=== PATIENT | male | born 1935 | race Caucasian/White ===

== ENCOUNTER 2019-02-21 06:54 | Inpatient (IN) | payer MEDICARE, OTHER ==
[2019-02-21 07:23] LABS: ADD MAN DIFF? NO
[2019-02-21 07:25] LABS: WHITE BLOOD COUNT 9.8 10^3/ul (4.8-10.8)
[2019-02-21 07:25] LABS: ABNORMAL IP MESSAGE 1; BASOPHILS % 0.2 % (0.0-2.0); EOSINOPHILS % 0.3 % (0.0-7.0); HEMATOCRIT 18.5 % (42.0-52.0); LYMPHOCYTES # 0.9 10^3/ul (0.8-2.9); LYMPHOCYTES % 9.5 % (15.0-51.0); MEAN CORPUSCULAR HEMOGLOBIN 32.3 pg (29.0-33.0); MEAN CORPUSCULAR VOLUME 97.9 fl (82.0-101.0); MEAN PLATELET VOLUME 10.7 fl (7.4-10.4); MONOCYTE # 0.5 10^3/ul (0.3-0.9); MONOCYTES % 5.3 % (0.0-11.0); NEUTROPHIL # 8.2 10^3/ul (1.6-7.5); PLATELET COUNT 221 10^3/UL (140-415); POSITIVE DIFF @See below; RED BLOOD COUNT 1.89 10^6/ul (4.70-6.10); RED CELL DISTRIBUTION WIDTH 14.1 % (11.5-14.5)
[2019-02-21 07:28] LABS: HEMOGLOBIN 6.1 g/dl (14.0-18.0)
[2019-02-21 07:41] LABS: ALANINE AMINOTRANSFERASE 20 IU/L (13-69); ALBUMIN 3.3 g/dl (3.3-4.9); ALBUMIN/GLOBULIN RATIO 1.43; ALKALINE PHOSPHATASE 62 IU/L (42-121); ANION GAP 19 (5-13); ASPARTATE AMINO TRANSFERASE 9 IU/L (15-46); BILIRUBIN,INDIRECT 0.2 mg/dl (0-1.1); BILIRUBIN,TOTAL 0.2 mg/dl (0.2-1.3); CARBON DIOXIDE 18 mmol/L (21-31); CHLORIDE 106 mmol/L (97-110); CREATINE KINASE 42 IU/L (23-200); CREATININE 5.03 mg/dl (0.61-1.24); GLUCOSE 126 mg/dl (70-220); POTASSIUM 4.6 mmol/L (3.5-5.1); SODIUM 143 mmol/L (135-144); TOTAL PROTEIN 5.6 g/dl (6.1-8.1)
[2019-02-21 07:43] LABS: PROTIME 14.3 Sec (11.9-14.9); PT RATIO 1.1
[2019-02-21 07:44] LABS: PARTIAL THROMBOPLASTIN TIME 28.3 Sec (23.0-35.0)
[2019-02-21] MEDS: SOD CHLORIDE 0.9% 1,000 ML IV ×2 (07:47→14:43)
[2019-02-21 07:48] LABS: BLOOD UREA NITROGEN 198 mg/dl (7-20)
[2019-02-21 07:55] LABS: CK INDEX 7.5; TROPONIN-I 0.093 ng/ml (0.000-0.120)
[2019-02-21 07:57] LABS: CK-MB 3.15 ng/ml (0.0-2.4)
[2019-02-21 07:58] LABS: ANISOCYTOSIS 1+ (0-0); LYMPHOCYTES % (M) 11 % (15-51); MONOCYTE #M 0.1 10^3/ul (0.3-0.9); MONOCYTES % (M) 2 % (0-11); PLATELET ESTIMATE NORMAL; RBC MORPHOLOGY COMMENT @See below; SEGMENTED NEUTROPHILS (M) % 87 % (39-77); SMUDGE%M 32 % (0-0); WBC MORPHOLOGY COMMENT @See below
[2019-02-21 08:05] LABS: ADD UMIC NO; UR ASCORBIC ACID NEGATIVE (NEGATIVE); UR BILIRUBIN (Dip) NEGATIVE (NEGATIVE); UR BLOOD (Dip) NEGATIVE (NEGATIVE); UR CLARITY CLEAR (CLEAR); UR COLOR STRAW (YELLOW); UR GLUCOSE (Dip) NEGATIVE (NEGATIVE); UR KETONES (Dip) NEGATIVE (NEGATIVE); UR LEUKOCYTE ESTERASE (Dip) NEGATIVE Leu/ul (NEGATIVE); UR NITRITE (Dip) NEGATIVE (NEGATIVE); UR SPECIFIC GRAVITY (Dip) 1.012 (1.003-1.030); UR TOTAL PROTEIN (Dip) NEGATIVE (NEGATIVE); UR UROBILINOGEN (Dip) NEGATIVE (NEGATIVE)
[2019-02-21] MEDS: ONDANSETRON 4 MG INJ IV ×2 (08:48→11:21)
[2019-02-21] MEDS: morphine 4 MG/ML VIAL IV (08:48)
[2019-02-21] MEDS ORDERED: ONDANSETRON 4 MG INJ IV (10:30)
[2019-02-21] MEDS: morphine 2 MG INJ IV (11:21)
[2019-02-21 11:45] LABS: OCCULT BLOOD STOOL POSITIVE (NEGATIVE)
[2019-02-21] MEDS ORDERED: NON-FORMULARY/PATIENT OWN MED (Temazepam* 30 MG) PO (15:00)
[2019-02-21] MEDS ORDERED: NACL 0.9% 3 ML SYG IV (15:00)
[2019-02-21] MEDS: ACETAMINOPHEN 325 MG TAB PO (15:58)
[2019-02-21 16:09] LABS: IRON 172 ug/dl (35-150)
[2019-02-21 16:19] LABS: % IRON SATURATION 68 % SAT (22-52); TOTAL IRON BINDING CAPACITY 252 ug/dl (241-421)
[2019-02-21 16:42] LABS: CARCINOEMBRYONIC ANTIGEN 2.1 ng/ml (0.0-5.0)
[2019-02-21] MEDS: PANTOPRAZOLE IV 80 MG in SOD CHLORIDE 0.9% 100 ML IV (20:35)
[2019-02-21] MEDS: PSYLLIUM 28% PACKET PO (21:00)
[2019-02-21] MEDS ORDERED: NON-FORMULARY/PATIENT OWN MED (Simvastatin* (Zocor*) 10 MG) PO (21:00)
[2019-02-21] MEDS: ATORVASTATIN 10 MG TAB PO (21:33)
[2019-02-21] MEDS: SUCRALFATE (100 MG/ML) 10ML CUP PO (23:43)
[2019-02-21] MEDS: FUROSEMIDE 40 MG TAB PO (23:44)
[2019-02-22] MEDS: ACETAMINOPHEN 325 MG TAB PO (01:16)
[2019-02-22] MEDS: PANTOPRAZOLE IV 80 MG in SOD CHLORIDE 0.9% 100 ML IV ×3 (01:18→21:16)
[2019-02-22 05:40] LABS: ADD MAN DIFF? NO
[2019-02-22 05:44] LABS: WHITE BLOOD COUNT 8.8 10^3/ul (4.8-10.8)
[2019-02-22 05:44] LABS: BASOPHILS % 0.1 % (0.0-2.0); HEMATOCRIT 22.7 % (42.0-52.0); HEMOGLOBIN 7.3 g/dl (14.0-18.0); LYMPHOCYTES # 0.7 10^3/ul (0.8-2.9); LYMPHOCYTES % 7.4 % (15.0-51.0); MEAN CORPUSCULAR HEMOGLOBIN 31.3 pg (29.0-33.0); MEAN CORPUSCULAR HGB CONC 32.2 g/dl (32.0-37.0); MEAN CORPUSCULAR VOLUME 97.4 fl (82.0-101.0); MEAN PLATELET VOLUME 11.1 fl (7.4-10.4); MONOCYTE # 0.5 10^3/ul (0.3-0.9); MONOCYTES % 5.8 % (0.0-11.0); NEUTROPHIL # 7.6 10^3/ul (1.6-7.5); NEUTROPHILS % 85.8 % (39.0-77.0); PLATELET COUNT 171 10^3/UL (140-415); RED BLOOD COUNT 2.33 10^6/ul (4.70-6.10)
[2019-02-22 06:22] LABS: ANION GAP 15 (5-13); CALCIUM 8.7 mg/dl (8.4-10.2); CARBON DIOXIDE 15 mmol/L (21-31); CHLORIDE 113 mmol/L (97-110); CHOL/HDL RATIO 2.7 RATIO; CHOLESTEROL 89 mg/dl (100-200); CREATININE 4.74 mg/dl (0.61-1.24); GLUCOSE 123 mg/dl (70-220); HDL CHOLESTEROL 32 mg/dl (31-75); LDL CHOLESTEROL,CALCULATED 39 mg/dl; MAGNESIUM 3.1 mg/dl (1.7-2.5); PHOSPHORUS 4.7 mg/dl (2.5-4.9); POTASSIUM 5.5 mmol/L (3.5-5.1); SODIUM 143 mmol/L (135-144); TRIGLYCERIDES 92 mg/dl (0-149)
[2019-02-22 06:29] LABS: BLOOD UREA NITROGEN 192 mg/dl (7-20)
[2019-02-22 07:28] LABS: HEMOGLOBIN A1C 5.6 % (0-5.9)
[2019-02-22] MEDS: THIAMINE 100 MG TAB PO (08:51)
[2019-02-22] MEDS: SUCRALFATE (100 MG/ML) 10ML CUP PO ×4 (08:51→21:15)
[2019-02-22] MEDS: ALLOPURINOL 300 MG TAB PO (08:51)
[2019-02-22] MEDS: PSYLLIUM 28% PACKET PO ×2 (08:52→21:15)
[2019-02-22] MEDS: FUROSEMIDE 40 MG TAB PO (08:52)
[2019-02-22] MEDS ORDERED: NON-FORMULARY/PATIENT OWN MED (Olmesartan Medoxomil (Benicar) 20 MG) PO (09:00)
[2019-02-22 11:25] LABS: HEMATOCRIT 22.8 % (42.0-52.0); HEMOGLOBIN 7.5 g/dl (14.0-18.0)
[2019-02-22] MEDS: ONDANSETRON 4 MG INJ IV (12:56)
[2019-02-22 14:35] LABS: IMMEDIATE SPIN CROSSMATCH 1 3
[2019-02-22] MEDS: SOD CHLORIDE 0.9% 250 ML IV* (15:04)
[2019-02-22] MEDS ORDERED: SOD CHLORIDE 0.9% 1,000 ML IV (15:30)
[2019-02-22] MEDS: BISACODYL (EC) 5 MG TAB PO (17:45)
[2019-02-22 18:11] LABS: AADO2 Arterial 27.9 mmHg (7.0-24.0); Allen Test ACCEPTAB; Arterial Base Excess -12.7 mmol/L (-3.0-3); Arterial Blood Gas Oxygen Sat 95.4 mmHG (95.0-100.0); Arterial COHb 0.5 % (0.0-3.0); Arterial Fraction of Oxyhgb 94.8 % (93.0-99.0); Arterial HCO3 13.5 mmol/L (22.0-26.0); Arterial MetHb 0.1 % (0.0-1.5); Arterial pCO2 31.6 mmhg (35-45); MODE ROOM AIR; Site Left Radial
[2019-02-22] MEDS: DESMOPRESSIN IVPB (18:49)
[2019-02-22] MEDS: SOD CHLORIDE 0.9% 1,000 ML IV (18:49)
[2019-02-22] MEDS: SOD CHLORIDE 0.9% IVPB (18:49)
[2019-02-22] MEDS: ATORVASTATIN 10 MG TAB PO (21:15)
[2019-02-23] MEDS ORDERED: VANCOMYCIN IV PER PHARMACY XX (04:30)
[2019-02-23] MEDS: VANCOMYCIN 1 GM 250 ML IVPB (05:00)
[2019-02-23] MEDS: ACETAMINOPHEN 325 MG TAB PO (05:00)
[2019-02-23 06:19] LABS: ADD MAN DIFF? NO
[2019-02-23 06:25] LABS: WHITE BLOOD COUNT 6.1 10^3/ul (4.8-10.8)
[2019-02-23 06:25] LABS: ABNORMAL IP MESSAGE 1; BASOPHILS % 0.2 % (0.0-2.0); EOSINOPHILS # 0.1 10^3/ul (0.0-0.5); EOSINOPHILS % 0.8 % (0.0-7.0); HEMATOCRIT 27.1 % (42.0-52.0); HEMOGLOBIN 8.6 g/dl (14.0-18.0); LYMPHOCYTES # 0.4 10^3/ul (0.8-2.9); LYMPHOCYTES % 7.2 % (15.0-51.0); MEAN CORPUSCULAR HEMOGLOBIN 30.7 pg (29.0-33.0); MEAN CORPUSCULAR HGB CONC 31.7 g/dl (32.0-37.0); MEAN CORPUSCULAR VOLUME 96.8 fl (82.0-101.0); MEAN PLATELET VOLUME 11.3 fl (7.4-10.4); MONOCYTE # 0.7 10^3/ul (0.3-0.9); NEUTROPHIL # 4.9 10^3/ul (1.6-7.5); NEUTROPHILS % 80.5 % (39.0-77.0); PLATELET COUNT 175 10^3/UL (140-415); POSITIVE DIFF @See below
[2019-02-23] MEDS: PANTOPRAZOLE IV 80 MG in SOD CHLORIDE 0.9% 100 ML IV ×2 (06:44→17:18)
[2019-02-23] MEDS: DILTIAZEM 25 MG INJ IV (07:00)
[2019-02-23] MEDS: DEXTROSE 5% IV ×3 (07:30→20:56)
[2019-02-23] MEDS: SODIUM BICARBONATE IV ×3 (07:30→20:56)
[2019-02-23 07:54] LABS: ANION GAP 14 (5-13); CALCIUM 8.7 mg/dl (8.4-10.2); CARBON DIOXIDE 14 mmol/L (21-31); CHLORIDE 116 mmol/L (97-110); CREATININE 5.16 mg/dl (0.61-1.24); GLUCOSE 121 mg/dl (70-220); MAGNESIUM 3.2 mg/dl (1.7-2.5); PHOSPHORUS 4.9 mg/dl (2.5-4.9); SODIUM 144 mmol/L (135-144)
[2019-02-23] MEDS: PEG/ELECTROLYTES 4L BTL PO (08:00)
[2019-02-23 08:13] LABS: BLOOD UREA NITROGEN 183 mg/dl (7-20)
[2019-02-23] MEDS: AMIODARONE 900 MG in DEXTROSE 5% 482 ML IV ×2 (08:28→16:19)
[2019-02-23] MEDS: AMIODARONE 150MG/D5W BOLUS 100 ML IV (08:35)
[2019-02-23] MEDS: SUCRALFATE (100 MG/ML) 10ML CUP PO ×4 (11:28→20:55)
[2019-02-23] MEDS: ALLOPURINOL 300 MG TAB PO (11:29)
[2019-02-23] MEDS: BISACODYL (EC) 5 MG TAB PO (11:29)
[2019-02-23] MEDS: PSYLLIUM 28% PACKET PO ×2 (11:29→20:55)
[2019-02-23] MEDS: THIAMINE 100 MG TAB PO (11:29)
[2019-02-23] MEDS: DILTIAZEM 30 MG TAB PO ×2 (11:29→17:24)
[2019-02-23] MEDS ORDERED: NA BICARBONATE 8.4% 50 ML SYG IV ×4 (16:30→23:00)
[2019-02-23] MEDS: ATORVASTATIN 10 MG TAB PO (20:56)
[2019-02-23] MEDS: ZOLPIDEM 5 MG TAB PO (21:16)
[2019-02-24] MEDS: DILTIAZEM 30 MG TAB PO ×2 (00:58→06:16)
[2019-02-24] MEDS: SODIUM BICARBONATE IV (01:00)
[2019-02-24] MEDS: DEXTROSE 5% IV (01:00)
[2019-02-24 06:05] LABS: ADD MAN DIFF? NO
[2019-02-24 06:11] LABS: ABNORMAL IP MESSAGE 1; EOSINOPHILS # 0.1 10^3/ul (0.0-0.5); EOSINOPHILS % 3.1 % (0.0-7.0); HEMATOCRIT 23.2 % (42.0-52.0); HEMOGLOBIN 7.7 g/dl (14.0-18.0); LYMPHOCYTES # 0.4 10^3/ul (0.8-2.9); MEAN CORPUSCULAR HEMOGLOBIN 31.2 pg (29.0-33.0); MEAN CORPUSCULAR HGB CONC 33.2 g/dl (32.0-37.0); MEAN CORPUSCULAR VOLUME 93.9 fl (82.0-101.0); MONOCYTE # 0.5 10^3/ul (0.3-0.9); MONOCYTES % 14.3 % (0.0-11.0); NEUTROPHIL # 2.5 10^3/ul (1.6-7.5); NEUTROPHILS % 72.3 % (39.0-77.0); PLATELET COUNT 149 10^3/UL (140-415); POSITIVE DIFF @See below; RED BLOOD COUNT 2.47 10^6/ul (4.70-6.10); RED CELL DISTRIBUTION WIDTH 15.8 % (11.5-14.5)
[2019-02-24 06:11] LABS: WHITE BLOOD COUNT 3.5 10^3/ul (4.8-10.8)
[2019-02-24] MEDS: PANTOPRAZOLE IV 80 MG in SOD CHLORIDE 0.9% 100 ML IV (06:14)
[2019-02-24] MEDS: PANTOPRAZOLE (EC) 40 MG TAB PO ×2 (06:18→17:42)
[2019-02-24 06:41] LABS: ANION GAP 12 (5-13); CALCIUM 8.5 mg/dl (8.4-10.2); CARBON DIOXIDE 13 mmol/L (21-31); CHLORIDE 118 mmol/L (97-110); CREATININE 5.63 mg/dl (0.61-1.24); GLUCOSE 124 mg/dl (70-220); MAGNESIUM 3.1 mg/dl (1.7-2.5); SODIUM 143 mmol/L (135-144)
[2019-02-24 07:03] LABS: BLOOD UREA NITROGEN 182 mg/dl (7-20)
[2019-02-24] MEDS: SUCRALFATE (100 MG/ML) 10ML CUP PO ×3 (08:49→17:42)
[2019-02-24] MEDS: PSYLLIUM 28% PACKET PO (08:50)
[2019-02-24] MEDS: ALLOPURINOL 300 MG TAB PO (08:50)
[2019-02-24] MEDS: THIAMINE 100 MG TAB PO (08:50)
[2019-02-24] MEDS: AMIODARONE 200 MG TAB PO (12:10)
[2019-02-24] MEDS: PEG/ELECTROLYTES 4L BTL PO (14:28)
[2019-02-24] MEDS: SODIUM BICARBONATE IN D5W 1,000 ML IV (15:16)
[2019-02-25] MEDS: SUCRALFATE (100 MG/ML) 10ML CUP PO ×6 (00:21→21:09)
[2019-02-25] MEDS: ATORVASTATIN 10 MG TAB PO ×2 (00:22→21:09)
[2019-02-25] MEDS: AMIODARONE 200 MG TAB PO ×4 (00:22→21:10)
[2019-02-25] MEDS: PSYLLIUM 28% PACKET PO ×4 (00:23→21:00)
[2019-02-25] MEDS: PANTOPRAZOLE (EC) 40 MG TAB PO ×2 (06:27→18:23)
[2019-02-25] MEDS: SODIUM BICARBONATE IN D5W 1,000 ML IV ×2 (06:27→18:19)
[2019-02-25] MEDS: ALLOPURINOL 300 MG TAB PO ×2 (08:49→09:00)
[2019-02-25] MEDS: THIAMINE 100 MG TAB PO ×3 (08:50→09:00)
[2019-02-25] MEDS: BISACODYL (EC) 5 MG TAB PO ×2 (10:00→18:18)
[2019-02-25] MEDS: MAGNESIUM CITRATE 300 ML BTL PO (12:11)
[2019-02-25] MEDS: POLYETHYLENE GLYCOL 3350 119 GM POWDER PO ×2 (12:12→18:00)
[2019-02-25 12:44] LABS: ANION GAP 8 (5-13); CALCIUM 8.4 mg/dl (8.4-10.2); CARBON DIOXIDE 21 mmol/L (21-31); CHLORIDE 114 mmol/L (97-110); CREATININE 5.35 mg/dl (0.61-1.24); GLUCOSE 145 mg/dl (70-220); POTASSIUM 4.4 mmol/L (3.5-5.1); SODIUM 143 mmol/L (135-144)
[2019-02-25 12:55] LABS: BLOOD UREA NITROGEN 165 mg/dl (7-20)
[2019-02-25 16:18] LABS: ADD MAN DIFF? NO
[2019-02-25 16:21] LABS: WHITE BLOOD COUNT 3.1 10^3/ul (4.8-10.8)
[2019-02-25 16:21] LABS: ABNORMAL IP MESSAGE 1; EOSINOPHILS # 0.2 10^3/ul (0.0-0.5); EOSINOPHILS % 5.4 % (0.0-7.0); HEMATOCRIT 21.9 % (42.0-52.0); HEMOGLOBIN 7.4 g/dl (14.0-18.0); LYMPHOCYTES # 0.3 10^3/ul (0.8-2.9); LYMPHOCYTES % 8.3 % (15.0-51.0); MEAN CORPUSCULAR HEMOGLOBIN 31.6 pg (29.0-33.0); MEAN CORPUSCULAR HGB CONC 33.8 g/dl (32.0-37.0); MEAN CORPUSCULAR VOLUME 93.6 fl (82.0-101.0); MEAN PLATELET VOLUME 11.8 fl (7.4-10.4); MONOCYTE # 0.4 10^3/ul (0.3-0.9); MONOCYTES % 11.5 % (0.0-11.0); NEUTROPHIL # 2.3 10^3/ul (1.6-7.5); NEUTROPHILS % 73.5 % (39.0-77.0); PLATELET COUNT 141 10^3/UL (140-415); POSITIVE DIFF @See below; RED BLOOD COUNT 2.34 10^6/ul (4.70-6.10); RED CELL DISTRIBUTION WIDTH 15.7 % (11.5-14.5)
[2019-02-25] MEDS: EPOETIN ALFA-EPBX (NON-ESRD 10,000 UNIT/ML VIAL SC (18:15)
[2019-02-26 05:44] LABS: ADD MAN DIFF? NO
[2019-02-26 06:04] LABS: ABNORMAL IP MESSAGE 1; BASOPHILS % 0.2 % (0.0-2.0); EOSINOPHILS # 0.2 10^3/ul (0.0-0.5); EOSINOPHILS % 3.6 % (0.0-7.0); HEMATOCRIT 22.6 % (42.0-52.0); HEMOGLOBIN 7.7 g/dl (14.0-18.0); LYMPHOCYTES # 0.2 10^3/ul (0.8-2.9); LYMPHOCYTES % 5.7 % (15.0-51.0); MEAN CORPUSCULAR HEMOGLOBIN 31.4 pg (29.0-33.0); MEAN CORPUSCULAR HGB CONC 34.1 g/dl (32.0-37.0); MEAN CORPUSCULAR VOLUME 92.2 fl (82.0-101.0); MEAN PLATELET VOLUME 12.3 fl (7.4-10.4); MONOCYTE # 0.3 10^3/ul (0.3-0.9); MONOCYTES % 8.1 % (0.0-11.0); NEUTROPHIL # 3.4 10^3/ul (1.6-7.5); NEUTROPHILS % 81.2 % (39.0-77.0); PLATELET COUNT 129 10^3/UL (140-415); POSITIVE DIFF @See below; RED BLOOD COUNT 2.45 10^6/ul (4.70-6.10); RED CELL DISTRIBUTION WIDTH 15.5 % (11.5-14.5)
[2019-02-26 06:04] LABS: WHITE BLOOD COUNT 4.2 10^3/ul (4.8-10.8)
[2019-02-26] MEDS: PANTOPRAZOLE (EC) 40 MG TAB PO ×2 (06:12→18:00)
[2019-02-26 07:38] LABS: ALBUMIN 2.9 g/dl (3.3-4.9); BILIRUBIN,INDIRECT 0.3 mg/dl (0-1.1); BILIRUBIN,TOTAL 0.3 mg/dl (0.2-1.3)
[2019-02-26 08:06] LABS: ALANINE AMINOTRANSFERASE 22 IU/L (13-69); ALBUMIN/GLOBULIN RATIO 1.16; ALKALINE PHOSPHATASE 46 IU/L (42-121); ANION GAP 8 (5-13); ASPARTATE AMINO TRANSFERASE 25 IU/L (15-46); CALCIUM 8.4 mg/dl (8.4-10.2); CARBON DIOXIDE 25 mmol/L (21-31); CHLORIDE 112 mmol/L (97-110); CREATININE 4.48 mg/dl (0.61-1.24); GLUCOSE 145 mg/dl (70-220); MAGNESIUM 3.3 mg/dl (1.7-2.5); PHOSPHORUS 3.7 mg/dl (2.5-4.9); POTASSIUM 4.4 mmol/L (3.5-5.1); SODIUM 145 mmol/L (135-144); TOTAL PROTEIN 5.4 g/dl (6.1-8.1)
[2019-02-26 08:13] LABS: BLOOD UREA NITROGEN 160 mg/dl (7-20)
[2019-02-26] MEDS: SODIUM BICARBONATE IN D5W 1,000 ML IV (09:37)
[2019-02-26] MEDS: SUCRALFATE (100 MG/ML) 10ML CUP PO ×4 (11:31→20:52)
[2019-02-26] MEDS: THIAMINE 100 MG TAB PO (11:31)
[2019-02-26] MEDS: ALLOPURINOL 300 MG TAB PO (11:31)
[2019-02-26] MEDS: PSYLLIUM 28% PACKET PO ×2 (11:32→20:53)
[2019-02-26] MEDS: AMIODARONE 200 MG TAB PO ×2 (11:34→20:48)
[2019-02-26] MEDS: SOD CHLORIDE 0.45% 1,000 ML IV (17:02)
[2019-02-26] MEDS: POLYETHYLENE GLYCOL 3350 119 GM POWDER PO ×2 (17:32→18:00)
[2019-02-26] MEDS: ATORVASTATIN 10 MG TAB PO (20:48)
[2019-02-26] MEDS: DEXTROSE 5% 1,000 ML IV (23:53)
[2019-02-27] MEDS: PANTOPRAZOLE (EC) 40 MG TAB PO ×2 (05:22→17:19)
[2019-02-27] MEDS: AMIODARONE 200 MG TAB PO ×2 (09:27→21:44)
[2019-02-27] MEDS: SUCRALFATE (100 MG/ML) 10ML CUP PO ×4 (09:28→21:43)
[2019-02-27] MEDS: ALLOPURINOL 300 MG TAB PO (09:28)
[2019-02-27] MEDS: PSYLLIUM 28% PACKET PO ×2 (09:28→21:46)
[2019-02-27] MEDS: THIAMINE 100 MG TAB PO (09:28)
[2019-02-27 11:02] LABS: ADD MAN DIFF? NO
[2019-02-27 11:10] LABS: ABNORMAL IP MESSAGE 1; BASOPHILS % 0.1 % (0.0-2.0); EOSINOPHILS # 0.1 10^3/ul (0.0-0.5); EOSINOPHILS % 1.6 % (0.0-7.0); HEMATOCRIT 27.6 % (42.0-52.0); HEMOGLOBIN 8.8 g/dl (14.0-18.0); LYMPHOCYTES # 0.3 10^3/ul (0.8-2.9); LYMPHOCYTES % 4.8 % (15.0-51.0); MEAN CORPUSCULAR HEMOGLOBIN 30.2 pg (29.0-33.0); MEAN CORPUSCULAR HGB CONC 31.9 g/dl (32.0-37.0); MEAN CORPUSCULAR VOLUME 94.8 fl (82.0-101.0); MEAN PLATELET VOLUME 11.8 fl (7.4-10.4); MONOCYTE # 0.6 10^3/ul (0.3-0.9); MONOCYTES % 8.9 % (0.0-11.0); NEUTROPHIL # 5.8 10^3/ul (1.6-7.5); PLATELET COUNT 162 10^3/UL (140-415); POSITIVE DIFF @See below; RED BLOOD COUNT 2.91 10^6/ul (4.70-6.10); RED CELL DISTRIBUTION WIDTH 15.8 % (11.5-14.5)
[2019-02-27 11:10] LABS: WHITE BLOOD COUNT 6.9 10^3/ul (4.8-10.8)
[2019-02-27 11:28] LABS: ANION GAP 7 (5-13)
[2019-02-27 11:29] LABS: CARBON DIOXIDE 32 mmol/L (21-31); CHLORIDE 107 mmol/L (97-110); GLUCOSE 128 mg/dl (70-220); POTASSIUM 4.4 mmol/L (3.5-5.1); SODIUM 146 mmol/L (135-144)
[2019-02-27 11:30] LABS: CALCIUM 8.4 mg/dl (8.4-10.2); CREATININE 4.08 mg/dl (0.61-1.24)
[2019-02-27 11:43] LABS: BLOOD UREA NITROGEN 130 mg/dl (7-20)
[2019-02-27] MEDS: BISACODYL (EC) 5 MG TAB PO (16:26)
[2019-02-27] MEDS: POLYETHYLENE GLYCOL 3350 119 GM POWDER PO (16:27)
[2019-02-27] MEDS: ATORVASTATIN 10 MG TAB PO (21:43)
[2019-02-27] MEDS: DEXTROSE 5%-0.45% NACL 1,000 ML IV (21:46)
[2019-02-28] MEDS: PANTOPRAZOLE (EC) 40 MG TAB PO ×2 (06:00→19:08)
[2019-02-28 06:19] LABS: ADD MAN DIFF? NO
[2019-02-28 06:26] LABS: ABNORMAL IP MESSAGE 1; EOSINOPHILS # 0.1 10^3/ul (0.0-0.5); EOSINOPHILS % 1.1 % (0.0-7.0); HEMATOCRIT 24.6 % (42.0-52.0); LYMPHOCYTES # 0.4 10^3/ul (0.8-2.9); LYMPHOCYTES % 5.2 % (15.0-51.0); MEAN CORPUSCULAR HEMOGLOBIN 30.8 pg (29.0-33.0); MEAN CORPUSCULAR HGB CONC 32.5 g/dl (32.0-37.0); MEAN CORPUSCULAR VOLUME 94.6 fl (82.0-101.0); MEAN PLATELET VOLUME 12.5 fl (7.4-10.4); MONOCYTE # 0.5 10^3/ul (0.3-0.9); MONOCYTES % 6.8 % (0.0-11.0); NEUTROPHIL # 6.1 10^3/ul (1.6-7.5); NEUTROPHILS % 86.2 % (39.0-77.0); PLATELET COUNT 153 10^3/UL (140-415); POSITIVE DIFF @See below; RED CELL DISTRIBUTION WIDTH 15.2 % (11.5-14.5)
[2019-02-28 06:26] LABS: WHITE BLOOD COUNT 7.1 10^3/ul (4.8-10.8)
[2019-02-28 06:44] LABS: ANION GAP 6 (5-13); BLOOD UREA NITROGEN 119 mg/dl (7-20); CALCIUM 8.2 mg/dl (8.4-10.2); CARBON DIOXIDE 32 mmol/L (21-31); CHLORIDE 106 mmol/L (97-110); CREATININE 3.74 mg/dl (0.61-1.24); GLUCOSE 151 mg/dl (70-220); POTASSIUM 4.1 mmol/L (3.5-5.1); SODIUM 144 mmol/L (135-144)
[2019-02-28] MEDS: SUCRALFATE (100 MG/ML) 10ML CUP PO ×4 (08:20→20:53)
[2019-02-28] MEDS: AMIODARONE 200 MG TAB PO ×2 (08:21→20:53)
[2019-02-28] MEDS: THIAMINE 100 MG TAB PO (08:22)
[2019-02-28] MEDS: PSYLLIUM 28% PACKET PO ×2 (08:22→20:54)
[2019-02-28] MEDS: ALLOPURINOL 300 MG TAB PO (08:22)
[2019-02-28] MEDS: POLYETHYLENE GLYCOL 3350 119 GM POWDER PO (08:23)
[2019-02-28] MEDS: DEXTROSE 5%-0.45% NACL 1,000 ML IV ×3 (08:50→22:10)
[2019-02-28] MEDS ORDERED: PHENYLephrine (100 MCG/ML) 10ML SYG (17:00)
[2019-02-28] MEDS ORDERED: PROPOFOL 200 MG INJ (17:00)
[2019-02-28] MEDS: EPOETIN ALFA-EPBX (NON-ESRD 10,000 UNIT/ML VIAL SC (19:09)
[2019-02-28] MEDS: ATORVASTATIN 10 MG TAB PO (20:53)
[2019-03-01] MEDS: ZOLPIDEM 5 MG TAB PO (01:09)
[2019-03-01] MEDS: PANTOPRAZOLE (EC) 40 MG TAB PO ×2 (05:22→17:13)
[2019-03-01 05:54] LABS: ADD MAN DIFF? NO
[2019-03-01 06:05] LABS: ABNORMAL IP MESSAGE 1; BASOPHILS % 0.1 % (0.0-2.0); EOSINOPHILS # 0.2 10^3/ul (0.0-0.5); EOSINOPHILS % 2.2 % (0.0-7.0); HEMATOCRIT 23.2 % (42.0-52.0); HEMOGLOBIN 7.5 g/dl (14.0-18.0); LYMPHOCYTES # 0.4 10^3/ul (0.8-2.9); LYMPHOCYTES % 4.6 % (15.0-51.0); MEAN CORPUSCULAR HEMOGLOBIN 31.1 pg (29.0-33.0); MEAN CORPUSCULAR HGB CONC 32.3 g/dl (32.0-37.0); MEAN CORPUSCULAR VOLUME 96.3 fl (82.0-101.0); MEAN PLATELET VOLUME 12.3 fl (7.4-10.4); MONOCYTE # 0.5 10^3/ul (0.3-0.9); MONOCYTES % 6.8 % (0.0-11.0); NEUTROPHIL # 6.5 10^3/ul (1.6-7.5); NEUTROPHILS % 85.6 % (39.0-77.0); NUCLEATED RED BLOOD CELLS% 0.5 /100WBC (0.0-0.0); PLATELET COUNT 167 10^3/UL (140-415); POSITIVE DIFF @See below; RED BLOOD COUNT 2.41 10^6/ul (4.70-6.10); RED CELL DISTRIBUTION WIDTH 14.6 % (11.5-14.5)
[2019-03-01 06:05] LABS: WHITE BLOOD COUNT 7.6 10^3/ul (4.8-10.8)
[2019-03-01 06:17] LABS: ANION GAP 6 (5-13); BLOOD UREA NITROGEN 102 mg/dl (7-20); CALCIUM 8.1 mg/dl (8.4-10.2); CARBON DIOXIDE 29 mmol/L (21-31); CHLORIDE 105 mmol/L (97-110); CREATININE 3.36 mg/dl (0.61-1.24); GLUCOSE 113 mg/dl (70-220); POTASSIUM 3.7 mmol/L (3.5-5.1); SODIUM 140 mmol/L (135-144)
[2019-03-01 06:19] LABS: MAGNESIUM 3.2 mg/dl (1.7-2.5)
[2019-03-01] MEDS: ALLOPURINOL 300 MG TAB PO (08:25)
[2019-03-01] MEDS: PSYLLIUM 28% PACKET PO ×2 (08:25→20:18)
[2019-03-01] MEDS: SUCRALFATE (100 MG/ML) 10ML CUP PO ×4 (08:25→20:18)
[2019-03-01] MEDS: THIAMINE 100 MG TAB PO (08:26)
[2019-03-01] MEDS: AMIODARONE 200 MG TAB PO ×2 (08:27→20:19)
[2019-03-01] MEDS: DEXTROSE 5%-0.45% NACL 1,000 ML IV (11:54)
[2019-03-01] MEDS: ATORVASTATIN 10 MG TAB PO (20:18)
[2019-03-02] MEDS: PANTOPRAZOLE (EC) 40 MG TAB PO ×2 (05:20→17:14)
[2019-03-02 05:46] LABS: ADD MAN DIFF? NO
[2019-03-02 05:53] LABS: WHITE BLOOD COUNT 8.5 10^3/ul (4.8-10.8)
[2019-03-02 05:53] LABS: ABNORMAL IP MESSAGE 1; BASOPHILS % 0.1 % (0.0-2.0); EOSINOPHILS # 0.3 10^3/ul (0.0-0.5); HEMATOCRIT 25.3 % (42.0-52.0); HEMOGLOBIN 8.2 g/dl (14.0-18.0); LYMPHOCYTES # 0.5 10^3/ul (0.8-2.9); LYMPHOCYTES % 6.1 % (15.0-51.0); MEAN CORPUSCULAR HEMOGLOBIN 30.8 pg (29.0-33.0); MEAN CORPUSCULAR HGB CONC 32.4 g/dl (32.0-37.0); MEAN CORPUSCULAR VOLUME 95.1 fl (82.0-101.0); MEAN PLATELET VOLUME 11.7 fl (7.4-10.4); MONOCYTE # 0.6 10^3/ul (0.3-0.9); NEUTROPHIL # 7.1 10^3/ul (1.6-7.5); NEUTROPHILS % 82.7 % (39.0-77.0); NUCLEATED RED BLOOD CELLS% 0.2 /100WBC (0.0-0.0); PLATELET COUNT 208 10^3/UL (140-415); POSITIVE DIFF @See below; RED BLOOD COUNT 2.66 10^6/ul (4.70-6.10); RED CELL DISTRIBUTION WIDTH 14.6 % (11.5-14.5)
[2019-03-02 06:41] LABS: ANION GAP 7 (5-13); BLOOD UREA NITROGEN 90 mg/dl (7-20); CALCIUM 7.9 mg/dl (8.4-10.2); CARBON DIOXIDE 26 mmol/L (21-31); CHLORIDE 105 mmol/L (97-110); CREATININE 3.51 mg/dl (0.61-1.24); GLUCOSE 121 mg/dl (70-220); POTASSIUM 3.9 mmol/L (3.5-5.1); SODIUM 138 mmol/L (135-144)
[2019-03-02] MEDS: DEXTROSE 5%-0.45% NACL 1,000 ML IV (07:35)
[2019-03-02] MEDS: PSYLLIUM 28% PACKET PO ×2 (09:00→20:33)
[2019-03-02] MEDS: SUCRALFATE (100 MG/ML) 10ML CUP PO ×4 (09:13→20:33)
[2019-03-02] MEDS: THIAMINE 100 MG TAB PO (09:13)
[2019-03-02] MEDS: ALLOPURINOL 300 MG TAB PO (09:13)
[2019-03-02] MEDS: FUROSEMIDE 40 MG INJ IV ×2 (09:15→22:06)
[2019-03-02] MEDS: AMIODARONE 200 MG TAB PO ×2 (09:18→20:34)
[2019-03-02] MEDS: EPOETIN ALFA-EPBX (NON-ESRD 10,000 UNIT/ML VIAL SC (17:14)
[2019-03-02] MEDS: ATORVASTATIN 10 MG TAB PO (20:33)
[2019-03-03] MEDS: PANTOPRAZOLE (EC) 40 MG TAB PO ×2 (06:30→17:31)
[2019-03-03] MEDS: ACETAMINOPHEN 325 MG TAB PO ×2 (06:33→23:38)
[2019-03-03 06:43] LABS: ANION GAP 8 (5-13); BLOOD UREA NITROGEN 82 mg/dl (7-20); CALCIUM 8.2 mg/dl (8.4-10.2); CARBON DIOXIDE 28 mmol/L (21-31); CHLORIDE 104 mmol/L (97-110); CREATININE 3.57 mg/dl (0.61-1.24); GLUCOSE 105 mg/dl (70-220); POTASSIUM 3.8 mmol/L (3.5-5.1); SODIUM 140 mmol/L (135-144)
[2019-03-03] MEDS: SUCRALFATE (100 MG/ML) 10ML CUP PO ×4 (08:41→21:51)
[2019-03-03] MEDS: AMIODARONE 200 MG TAB PO ×2 (08:41→21:52)
[2019-03-03] MEDS: THIAMINE 100 MG TAB PO (08:41)
[2019-03-03] MEDS: ALLOPURINOL 300 MG TAB PO (08:42)
[2019-03-03] MEDS: PSYLLIUM 28% PACKET PO ×2 (11:20→21:00)
[2019-03-03] MEDS: FUROSEMIDE 40 MG INJ IV (11:31)
[2019-03-03] MEDS: ATORVASTATIN 10 MG TAB PO (21:51)
[2019-03-04] MEDS: PANTOPRAZOLE (EC) 40 MG TAB PO ×2 (05:54→17:33)
[2019-03-04 06:32] LABS: ADD MAN DIFF? NO
[2019-03-04 06:45] LABS: ABNORMAL IP MESSAGE 1; BASOPHILS % 0.3 % (0.0-2.0); EOSINOPHILS # 0.2 10^3/ul (0.0-0.5); EOSINOPHILS % 2.7 % (0.0-7.0); HEMATOCRIT 22.7 % (42.0-52.0); HEMOGLOBIN 7.3 g/dl (14.0-18.0); LYMPHOCYTES # 0.5 10^3/ul (0.8-2.9); LYMPHOCYTES % 6.7 % (15.0-51.0); MEAN CORPUSCULAR HEMOGLOBIN 29.9 pg (29.0-33.0); MEAN CORPUSCULAR HGB CONC 32.2 g/dl (32.0-37.0); MEAN PLATELET VOLUME 11.8 fl (7.4-10.4); MONOCYTE # 0.5 10^3/ul (0.3-0.9); MONOCYTES % 6.4 % (0.0-11.0); NEUTROPHIL # 6.5 10^3/ul (1.6-7.5); NEUTROPHILS % 82.9 % (39.0-77.0); NUCLEATED RED BLOOD CELLS% 0.3 /100WBC (0.0-0.0); PLATELET COUNT 203 10^3/UL (140-415); POSITIVE DIFF @See below; RED BLOOD COUNT 2.44 10^6/ul (4.70-6.10); RED CELL DISTRIBUTION WIDTH 14.3 % (11.5-14.5)
[2019-03-04 06:45] LABS: WHITE BLOOD COUNT 7.8 10^3/ul (4.8-10.8)
[2019-03-04] MEDS: PSYLLIUM 28% PACKET PO ×2 (09:00→21:00)
[2019-03-04] MEDS: SUCRALFATE (100 MG/ML) 10ML CUP PO ×4 (09:27→21:03)
[2019-03-04] MEDS: AMIODARONE 200 MG TAB PO ×2 (09:27→21:02)
[2019-03-04] MEDS: ALLOPURINOL 300 MG TAB PO (09:27)
[2019-03-04] MEDS: THIAMINE 100 MG TAB PO (09:27)
[2019-03-04] MEDS: FUROSEMIDE 40 MG TAB PO (09:28)
[2019-03-04] MEDS: EPOETIN ALFA-EPBX (NON-ESRD 10,000 UNIT/ML VIAL SC (17:34)
[2019-03-04 20:22] LABS: ALANINE AMINOTRANSFERASE 19 IU/L (13-69); ALBUMIN 2.8 g/dl (3.3-4.9); ALBUMIN/GLOBULIN RATIO 1.07; ALKALINE PHOSPHATASE 72 IU/L (42-121); ANION GAP 7 (5-13); ASPARTATE AMINO TRANSFERASE 14 IU/L (15-46); BILIRUBIN,INDIRECT 0.4 mg/dl (0-1.1); BILIRUBIN,TOTAL 0.4 mg/dl (0.2-1.3); BLOOD UREA NITROGEN 77 mg/dl (7-20); CALCIUM 8.3 mg/dl (8.4-10.2); CARBON DIOXIDE 29 mmol/L (21-31); CHLORIDE 104 mmol/L (97-110); GLUCOSE 130 mg/dl (70-220); POTASSIUM 3.6 mmol/L (3.5-5.1); SODIUM 140 mmol/L (135-144); TOTAL PROTEIN 5.4 g/dl (6.1-8.1)
[2019-03-04] MEDS ORDERED: HYDROCODONE/APAP (7.5/325) TAB PO (20:30)
[2019-03-04] MEDS: ATORVASTATIN 10 MG TAB PO (21:02)
[2019-03-05] MEDS: PANTOPRAZOLE (EC) 40 MG TAB PO ×2 (06:27→17:56)
[2019-03-05 06:47] LABS: ANION GAP 7 (5-13); BLOOD UREA NITROGEN 75 mg/dl (7-20); CALCIUM 8.1 mg/dl (8.4-10.2); CARBON DIOXIDE 29 mmol/L (21-31); CHLORIDE 106 mmol/L (97-110); GLUCOSE 107 mg/dl (70-220); POTASSIUM 3.9 mmol/L (3.5-5.1); SODIUM 142 mmol/L (135-144)
[2019-03-05 07:31] LABS: MAGNESIUM 2.6 mg/dl (1.7-2.5)
[2019-03-05] MEDS: SUCRALFATE (100 MG/ML) 10ML CUP PO ×4 (09:11→20:10)
[2019-03-05] MEDS: ALLOPURINOL 300 MG TAB PO (09:12)
[2019-03-05] MEDS: THIAMINE 100 MG TAB PO (09:13)
[2019-03-05] MEDS: AMIODARONE 200 MG TAB PO ×2 (09:13→20:09)
[2019-03-05] MEDS: PSYLLIUM 28% PACKET PO ×2 (09:14→20:12)
[2019-03-05] MEDS: FUROSEMIDE 40 MG TAB PO (09:14)
[2019-03-05] MEDS ORDERED: HYDROCODONE/APAP (7.5/325) TAB PO (18:00)
[2019-03-05] MEDS: LACTOBACILLUS RHAMNOSUS CAP PO (20:08)
[2019-03-05] MEDS: ATORVASTATIN 10 MG TAB PO (20:08)
[2019-03-05] MEDS: ERGOCALCIFEROL 50,000 UNIT CAP PO (23:30)
[2019-03-05] MEDS: ISOSORBIDE MONONITRATE(SR)30 MG TAB PO (23:31)
[2019-03-06] MEDS: PANTOPRAZOLE (EC) 40 MG TAB PO ×2 (05:52→17:40)
[2019-03-06 06:06] LABS: ADD MAN DIFF? NO
[2019-03-06 06:14] LABS: WHITE BLOOD COUNT 7.6 10^3/ul (4.8-10.8)
[2019-03-06 06:14] LABS: BASOPHILS % 0.3 % (0.0-2.0); EOSINOPHILS # 0.2 10^3/ul (0.0-0.5); EOSINOPHILS % 2.2 % (0.0-7.0); HEMATOCRIT 22.5 % (42.0-52.0); HEMOGLOBIN 7.3 g/dl (14.0-18.0); LYMPHOCYTES # 0.6 10^3/ul (0.8-2.9); LYMPHOCYTES % 8.3 % (15.0-51.0); MEAN CORPUSCULAR HEMOGLOBIN 30.7 pg (29.0-33.0); MEAN CORPUSCULAR HGB CONC 32.4 g/dl (32.0-37.0); MEAN CORPUSCULAR VOLUME 94.5 fl (82.0-101.0); MEAN PLATELET VOLUME 10.7 fl (7.4-10.4); MONOCYTE # 0.4 10^3/ul (0.3-0.9); MONOCYTES % 4.6 % (0.0-11.0); NEUTROPHIL # 6.3 10^3/ul (1.6-7.5); NEUTROPHILS % 83.9 % (39.0-77.0); PLATELET COUNT 202 10^3/UL (140-415); RED BLOOD COUNT 2.38 10^6/ul (4.70-6.10); RED CELL DISTRIBUTION WIDTH 14.5 % (11.5-14.5)
[2019-03-06 06:45] LABS: ALANINE AMINOTRANSFERASE 29 IU/L (13-69); ALBUMIN 2.5 g/dl (3.3-4.9); ALBUMIN/GLOBULIN RATIO 1.08; ALKALINE PHOSPHATASE 66 IU/L (42-121); ANION GAP 5 (5-13); ASPARTATE AMINO TRANSFERASE 18 IU/L (15-46); BILIRUBIN,INDIRECT 0.4 mg/dl (0-1.1); BILIRUBIN,TOTAL 0.4 mg/dl (0.2-1.3); BLOOD UREA NITROGEN 70 mg/dl (7-20); CALCIUM 7.9 mg/dl (8.4-10.2); CARBON DIOXIDE 31 mmol/L (21-31); CHLORIDE 104 mmol/L (97-110); CREATININE 3.66 mg/dl (0.61-1.24); GLUCOSE 105 mg/dl (70-220); POTASSIUM 3.5 mmol/L (3.5-5.1); SODIUM 140 mmol/L (135-144); TOTAL PROTEIN 4.8 g/dl (6.1-8.1)
[2019-03-06 06:50] LABS: MAGNESIUM 2.3 mg/dl (1.7-2.5)
[2019-03-06 06:50] LABS: PHOSPHORUS 4.1 mg/dl (2.5-4.9)
[2019-03-06] MEDS: PSYLLIUM 28% PACKET PO ×2 (09:31→20:55)
[2019-03-06] MEDS: ALLOPURINOL 300 MG TAB PO (09:31)
[2019-03-06] MEDS: SUCRALFATE (100 MG/ML) 10ML CUP PO ×4 (09:31→20:46)
[2019-03-06 09:32] LABS: PARATHYROID HORMONE INTACT 162.4 pg/ml (7.5-53.5)
[2019-03-06] MEDS: LACTOBACILLUS RHAMNOSUS CAP PO ×2 (09:33→20:46)
[2019-03-06] MEDS: THIAMINE 100 MG TAB PO (09:35)
[2019-03-06] MEDS: ISOSORBIDE MONONITRATE(SR)30 MG TAB PO (09:35)
[2019-03-06] MEDS: FUROSEMIDE 40 MG TAB PO (09:35)
[2019-03-06] MEDS: AMIODARONE 200 MG TAB PO (09:53)
[2019-03-06] MEDS: ATORVASTATIN 10 MG TAB PO (20:47)
[2019-03-07] MEDS: PANTOPRAZOLE (EC) 40 MG TAB PO (06:00)
[2019-03-07] MEDS: ALLOPURINOL 300 MG TAB PO (08:57)
[2019-03-07] MEDS: LACTOBACILLUS RHAMNOSUS CAP PO (08:58)
[2019-03-07] MEDS: ISOSORBIDE MONONITRATE(SR)30 MG TAB PO (08:58)
[2019-03-07] MEDS: THIAMINE 100 MG TAB PO (08:59)
[2019-03-07] MEDS: SUCRALFATE (100 MG/ML) 10ML CUP PO ×2 (08:59→13:41)
[2019-03-07] MEDS: AMIODARONE 200 MG TAB PO (08:59)
[2019-03-07] MEDS: FUROSEMIDE 40 MG TAB PO (08:59)
[2019-03-07] MEDS: PSYLLIUM 28% PACKET PO (09:00)
== END 2019-03-07 17:18 | DRG 377 ==
LOC: PP2 03-05 22:36 → E/R 06:54 → 6WM 10:09
PROC: 0DD68ZX Extraction of Stomach, Via Natural or Artificial Opening Endoscopic, Diagnostic (ICD-10-PCS; principal; 2019-02-28 15:50)
PROC: 0DJD8ZZ Inspection of Lower Intestinal Tract, Via Natural or Artificial Opening Endoscopic (ICD-10-PCS; 2019-02-28 15:50)
PROC: 30233N1 Transfusion of Nonautologous Red Blood Cells into Peripheral Vein, Percutaneous Approach (ICD-10-PCS; 2019-02-28 15:50)
DX: K62.5 Hemorrhage of anus and rectum (principal); I50.23 Acute on chronic systolic (congestive) heart failure; N17.9 Acute kidney failure, unspecified; N18.4 Chronic kidney disease, stage 4 (severe); G93.40 Encephalopathy, unspecified; I13.0 Hypertensive heart and chronic kidney disease with heart failure and stage 1 through stage 4 chronic kidney disease, or unspecified chronic kidney disease; E87.0 Hyperosmolality and hypernatremia; I50.9 Heart failure, unspecified; E87.5 Hyperkalemia; I48.0 Paroxysmal atrial fibrillation; K64.8 Other hemorrhoids; K20.9 Esophagitis, unspecified; K29.70 Gastritis, unspecified, without bleeding; K57.90 Diverticulosis of intestine, part unspecified, without perforation or abscess without bleeding; K59.00 Constipation, unspecified; Z85.528 Personal history of other malignant neoplasm of kidney; I25.10 Atherosclerotic heart disease of native coronary artery without angina pectoris; E78.5 Hyperlipidemia, unspecified; E21.3 Hyperparathyroidism, unspecified; R53.81 Other malaise; F32.9 Major depressive disorder, single episode, unspecified; D63.1 Anemia in chronic kidney disease; Z90.5 Acquired absence of kidney
CPT/HCPCS: 36415; 36430; 36600; 70450; 71045; 73030-RT; 73060-RT; 74176; 80048; 80053; 80061; 81003; 82270; 82306; 82378; 82550; 82553; 82728; 82803; 82962; 83036; 83540; 83605; 83735; 83970; 84100; 84443; 84484; 85014; 85018; 85025; 85610; 85730; 86850; 86900; 86901; 86920; 87040-91; 87086; 88305; 88312; 93005; 93306; 94660; 96374; 96375; 97110; 97116; 97163; 97165; 97530; 97535; 99291-25